=== PATIENT | female | born 1975 | race Hispanic/Latino ===

== ENCOUNTER 2016-09-21 20:36 | Emergency (ER) | payer SELFPAY ==
[~2016-09-21] VITALS: Ht 152.4 cm; Wt 61.4 kg
[2016-09-21 21:01] LABS: POINT-OF-CARE METER ID UU13113778
[2016-09-21 22:00] LABS: HEMATOCRIT 29.8 % (36.0-46.0); MCH 20.5 PG (29.0-34.0); MCHC 30.9 G/DL (30.0-36.0); MCV 66.5 FL (83-99); MEAN PLAT.VOLUME 9.8 uM^3 (9.5-12.4); PLATELET COUNT 421 K/uL (156-360); RBC DIS.WIDTH-CV 16.7 % (11.8-14.6); RBC DIS.WIDTH-SD 38.6 % (39-53); RED BLOOD COUNT 4.48 M/uL (3.80-5.20); WHITE BLOOD COUNT 10.3 K/uL (4.1-10.2)
[2016-09-21 22:07] LABS: CHLORIDE 103 mEq/L (99-109); POTASSIUM 3.3 mEq/L (3.7-5.4); SODIUM 137 mEq/L (136-147)
[2016-09-21 22:09] LABS: GLUCOSE 104 mg/dL (70-99)
[2016-09-21 22:10] LABS: ANION GAP 11 MEQ/L (2-14)
[2016-09-21 22:13] LABS: GFR ESTIMATE (CALCULATED) > 59 mL/min/; UREA NITROGEN (BUN) 11 mg/dL (9-23)
[2016-09-21 22:22] LABS: QUANTITATIVE HCG < 4.0 MIU/ML
[2016-09-21 23:48] LABS: ADD MIUA? YES; BILIRUBIN NEGATIVE; BLOOD MODERATE; COLOR COLORLESS ((YELLOW)); GLUCOSE (STRIP) NEGATIVE; KETONES NEGATIVE; LEUKOCYTES TRACE; NITRITE NEGATIVE; PROTEIN (STRIP) NEGATIVE; SPECIFIC GRAVITY 1.003 (1.000-1.030); UROBILINOGEN 0.2 MG/DL (0.2-1.0)
[2016-09-21 23:51] LABS: BACTERIA NONE SEEN /HPF; EPITHELIAL CELLS RARE /HPF; MUCUS NONE SEEN /LPF; RED BLOOD CELLS 0-5 /HPF (0-5); UCUL ADDED? NO; WHITE BLOOD CELLS 0-5 /HPF (0-5)
[2016-09-22] MEDS ORDERED: MOTION RELIEF25 MG PO (00:45)
[2016-09-22 00:57] VITALS: BP 120/88
[2016-09-23] MEDS ORDERED: IRON18 MG PO (23:59)
[2016-09-23] MEDS ORDERED: FIORICET 50-301 EACH PO (23:59)
== END 2016-09-22 00:58 | disposition home or self-care (01) ==
LOC: EME 20:36
PROVIDERS: Physician Assistant
DX: D64.9 Anemia, unspecified (principal); R42 Dizziness and giddiness; I10 Essential (primary) hypertension
CPT/HCPCS: 71020; 80048; 81003; 84702; 85027; 93005; 99281; 99285

== ENCOUNTER 2016-09-23 20:20 | Emergency (ER) | payer SELFPAY ==
[~2016-09-23] VITALS: Ht 160 cm; Wt 61.4 kg
[~2016-09-23 20:20] MED LIST: MOTION RELIEF25 MG PO
[2016-09-23 21:52] LABS: BASOPHIL COUNT 0.1 K/uL (0-0.1); EOSINOPHIL (%) 0.8 % (0-5); EOSINOPHIL COUNT 0.1 K/uL (0-0.3); HEMATOCRIT 30.6 % (36.0-46.0); IMMATURE GRANULOCYTE (%) 0.3 % (0.0-0.7); INSTRUMENT ABS NEUTROPHIL CT 6.9 K/uL; LYMPHOCYTE COUNT 1.5 K/uL (1.0-2.8); MCH 19.9 PG (29.0-34.0); MCHC 30.1 G/DL (30.0-36.0); MCV 66.2 FL (83-99); MEAN PLAT.VOLUME 10.3 uM^3 (9.5-12.4); MONOCYTE (%) 6.8 % (3-12); MONOCYTE COUNT 0.6 K/uL (0-0.8); NEUTROPHIL (%) 75.3 % (45-76); NEUTROPHIL COUNT 6.9 K/uL (1.8-6.4); PLATELET COUNT 422 K/uL (156-360); RBC DIS.WIDTH-CV 16.8 % (11.8-14.6); RED BLOOD COUNT 4.62 M/uL (3.80-5.20); WHITE BLOOD COUNT 9.2 K/uL (4.1-10.2)
[2016-09-23 22:02] LABS: CHLORIDE 105 mEq/L (99-109); POTASSIUM 3.9 mEq/L (3.7-5.4); SODIUM 141 mEq/L (136-147)
[2016-09-23 22:03] LABS: MAGNESIUM 2.1 mg/dL (1.3-2.7)
[2016-09-23 22:05] LABS: GLUCOSE 110 mg/dL (70-99)
[2016-09-23 22:06] LABS: ANION GAP 10 MEQ/L (2-14)
[2016-09-23 22:07] LABS: TOTAL BILIRUBIN 0.2 mg/dL (0.0-1.0)
[2016-09-23 22:08] LABS: ALKALINE PHOSPHATASE 87 IU/L (3-129)
[2016-09-23 22:09] LABS: GFR ESTIMATE (CALCULATED) > 59 mL/min/
[2016-09-23 22:10] LABS: UREA NITROGEN (BUN) 10 mg/dL (9-23)
[2016-09-23 22:12] LABS: CREATINE KINASE 54 IU/L (1-294); TOTAL CK 54 IU/L (1-294)
[2016-09-23 22:17] LABS: CK-MB < 0.4 ng/mL (0.0-4.9)
[2016-09-23] MEDS ORDERED: IRON18 MG PO (23:59)
[2016-09-23] MEDS ORDERED: FIORICET 50-301 EACH PO (23:59)
[2016-09-24 00:15] VITALS: BP 112/61
== END 2016-09-24 00:16 | disposition home or self-care (01) ==
LOC: EME 20:20
PROVIDERS: Emergency Medicine
DX: R53.1 Weakness (principal); R51 Headache; D64.9 Anemia, unspecified; E11.9 Type 2 diabetes mellitus without complications; I10 Essential (primary) hypertension
CPT/HCPCS: 70450; 80053; 82550; 82553; 83735; 85025; 86900; 86901; 93005; 99281; 99285; J3360; J7030

== ENCOUNTER 2016-09-26 22:29 | Observation (INO) | payer OTHER ==
[~2016-09-26] VITALS: Ht 162.6 cm; Wt 63.6 kg
[~2016-09-26 22:29] MED LIST changes: +FIORICET 50-301 EACH PO; +IRON18 MG PO
[2016-09-27 00:22] LABS: BASOPHIL COUNT 0.1 K/uL (0-0.1); CHLORIDE 106 mEq/L (99-109); EOSINOPHIL (%) 0.6 % (0-5); EOSINOPHIL COUNT 0.1 K/uL (0-0.3); HEMATOCRIT 31.5 % (36.0-46.0); IMMATURE GRANULOCYTE (%) 0.3 % (0.0-0.7); INSTRUMENT ABS NEUTROPHIL CT 10.3 K/uL; LYMPHOCYTE COUNT 1.8 K/uL (1.0-2.8); MCH 20.3 PG (29.0-34.0); MCHC 30.5 G/DL (30.0-36.0); MCV 66.6 FL (83-99); MEAN PLAT.VOLUME 10.3 uM^3 (9.5-12.4); MONOCYTE COUNT 0.9 K/uL (0-0.8); NEUTROPHIL (%) 77.9 % (45-76); NEUTROPHIL COUNT 10.3 K/uL (1.8-6.4); PLATELET COUNT 475 K/uL (156-360); POTASSIUM 4.2 mEq/L (3.7-5.4); RBC DIS.WIDTH-CV 17.2 % (11.8-14.6); RBC DIS.WIDTH-SD 39.9 % (39-53); RED BLOOD COUNT 4.73 M/uL (3.80-5.20); SODIUM 140 mEq/L (136-147); WHITE BLOOD COUNT 13.2 K/uL (4.1-10.2)
[2016-09-27 00:23] LABS: MAGNESIUM 2.3 mg/dL (1.3-2.7)
[2016-09-27 00:25] LABS: GLUCOSE 103 mg/dL (70-99)
[2016-09-27 00:26] LABS: ANION GAP 9 MEQ/L (2-14)
[2016-09-27 00:27] LABS: TOTAL BILIRUBIN 0.2 mg/dL (0.0-1.0)
[2016-09-27 00:28] LABS: SERUM ETHYL ALCOHOL < 10 mg/dL
[2016-09-27 00:29] LABS: GFR ESTIMATE (CALCULATED) > 59 mL/min/
[2016-09-27 00:30] LABS: ALKALINE PHOSPHATASE 86 IU/L (3-129); DIRECT BILIRUBIN 0.1 mg/dL (0.0-0.3); TROP-I INTERPRETATION NEGATIVE; TROPONIN-I < 0.01 ng/mL (0.0-0.30)
[2016-09-27 00:31] LABS: UREA NITROGEN (BUN) 6 mg/dL (9-23)
[2016-09-27 00:32] LABS: SALICYLATE < 5.0 MG/DL (15-30)
[2016-09-27 00:33] LABS: LIPASE 15 U/L (1.0-51.0)
[2016-09-27 00:39] LABS: QUANTITATIVE HCG < 4.0 MIU/ML
[2016-09-27 01:06] LABS: ADD MIUA? YES; BILIRUBIN NEGATIVE; BLOOD SMALL; COLOR STRAW ((YELLOW)); GLUCOSE (STRIP) NEGATIVE; KETONES NEGATIVE; LEUKOCYTES NEGATIVE; NITRITE NEGATIVE; PROTEIN (STRIP) NEGATIVE; SPECIFIC GRAVITY 1.003 (1.000-1.030); UROBILINOGEN 0.2 MG/DL (0.2-1.0)
[2016-09-27 01:12] LABS: BACTERIA RARE /HPF; EPITHELIAL CELLS RARE /HPF; MUCUS NONE SEEN /LPF; RED BLOOD CELLS 0-5 /HPF (0-5); UCUL ADDED? NO; WHITE BLOOD CELLS 0-5 /HPF (0-5)
[2016-09-27 03:44] VITALS: BP 120/84
[2016-09-27 06:51] LABS: C DIFF TOXIN NEGATIVE (NEGATIVE)
[2016-09-27 06:53] LABS: PROBE CHECK PASS; SPECIMEN PROCESSING CONTROL PASS
[2016-09-27 07:38] LABS: IRON 22 MCG/DL (35-150)
[2016-09-27 08:48] VITALS: BP 111/72
[2016-09-27 09:06] LABS: FERRITIN 20 NG/ML (10-291)
[2016-09-27 09:30] LABS: ANION GAP 13 MEQ/L (2-14); CHLORIDE 107 MEQ/L (99-109); GFR ESTIMATE (CALCULATED) > 59 mL/min/; GLUCOSE 91 mg/dL (70-99); POTASSIUM 3.9 MEQ/L (3.7-5.4); SAMPLE HEMOLYSIS CHECK 0; SAMPLE ICTERIC CHECK 0; SAMPLE LIPEMIA CHECK 0; SODIUM 142 MEQ/L (136-147); UREA NITROGEN (BUN) 5 mg/dL (9-23)
[2016-09-27 11:03] LABS: HEMATOCRIT 28.8 % (36.0-46.0); MCH 20.2 PG (29.0-34.0); MCHC 30.2 G/DL (30.0-36.0); MCV 66.8 FL (83-99); PLATELET COUNT 388 K/uL (156-360); RBC DIS.WIDTH-CV 17.1 % (11.8-14.6); RBC DIS.WIDTH-SD 39.9 % (39-53); RED BLOOD COUNT 4.31 M/uL (3.80-5.20); WHITE BLOOD COUNT 9.1 K/uL (4.1-10.2)
[2016-09-27 11:21] LABS: ANION GAP 9 MEQ/L (2-14); CHLORIDE 108 MEQ/L (99-109); POTASSIUM 4.1 MEQ/L (3.7-5.4); SAMPLE HEMOLYSIS CHECK 0; SAMPLE ICTERIC CHECK 0; SAMPLE LIPEMIA CHECK 0; SODIUM 144 MEQ/L (136-147)
[2016-09-27 11:26] LABS: GFR ESTIMATE (CALCULATED) > 59 mL/min/; GLUCOSE 93 mg/dL (70-99); UREA NITROGEN (BUN) 6 mg/dL (9-23)
[2016-09-27 11:47] VITALS: BP 127/71
[2016-09-27] MEDS ORDERED: OMEPRAZOLE20 M2 PO (14:16)
== END 2016-09-27 17:05 | disposition home or self-care (01) ==
LOC: EME 22:29 → 5WEST 09-27 02:43 → EDOF 09-27 02:43 → ENRESERV 09-27 02:44 → 5WEST 09-27 03:25
PROVIDERS: Emergency Medicine; Hospitalist; Nurse Practitioner Family
DX: I95.1 Orthostatic hypotension (principal); R55 Syncope and collapse; M62.81 Muscle weakness (generalized); D64.9 Anemia, unspecified; R19.7 Diarrhea, unspecified; N92.0 Excessive and frequent menstruation with regular cycle; E86.0 Dehydration; Z80.0 Family history of malignant neoplasm of digestive organs
CPT/HCPCS: 74176; 80048; 80048 91; 80076; 81003; 82272; 82607; 82728; 82746; 83540; 83605; 83690; 83735; 84466; 84484; 84702; 85025; 85027; 85651; 87493; 99281; 99285; G0378; G0480; J1650; J2765; J7030

== ENCOUNTER 2016-10-07 16:26 | Observation (INO) | payer OTHER ==
[~2016-10-07] VITALS: Ht 160 cm; Wt 57.7 kg
[~2016-10-07 16:26] MED LIST changes: +OMEPRAZOLE20 M2 PO
[2016-10-07 19:39] LABS: BASOPHIL COUNT 0.1 K/uL (0-0.1); D-DIMER ELISA < 150.00 ng/mLDDU (<230); EOSINOPHIL (%) 0.1 % (0-5); HEMATOCRIT 33.9 % (36.0-46.0); IMMATURE GRANULOCYTE (%) 0.4 % (0.0-0.7); IMMATURE GRANULOCYTE COUNT 0.1 K/uL; INSTRUMENT ABS NEUTROPHIL CT 10.5 K/uL; LYMPHOCYTE COUNT 2.8 K/uL (1.0-2.8); MCH 20.8 PG (29.0-34.0); MEAN PLAT.VOLUME 10.4 uM^3 (9.5-12.4); MONOCYTE (%) 8.7 % (3-12); MONOCYTE COUNT 1.3 K/uL (0-0.8); NEUTROPHIL (%) 71.5 % (45-76); NEUTROPHIL COUNT 10.5 K/uL (1.8-6.4); PLATELET COUNT 381 K/uL (156-360); RBC DIS.WIDTH-CV 19.7 % (11.8-14.6); RBC DIS.WIDTH-SD 45.1 % (39-53); RED BLOOD COUNT 5.06 M/uL (3.80-5.20); WHITE BLOOD COUNT 14.7 K/uL (4.1-10.2)
[2016-10-07 19:40] LABS: CHLORIDE 102 mEq/L (99-109); POTASSIUM 3.8 mEq/L (3.7-5.4); SODIUM 137 mEq/L (136-147)
[2016-10-07 19:42] LABS: GLUCOSE 97 mg/dL (70-99)
[2016-10-07 19:43] LABS: ANION GAP 12 MEQ/L (2-14)
[2016-10-07 19:46] LABS: GFR ESTIMATE (CALCULATED) > 59 mL/min/; UREA NITROGEN (BUN) 7 mg/dL (9-23)
[2016-10-07 19:53] LABS: TROP-I INTERPRETATION NEGATIVE; TROPONIN-I < 0.01 ng/mL (0.0-0.30)
[2016-10-08 01:24] VITALS: BP 118/75
[2016-10-08 03:49] VITALS: BP 128/73
[2016-10-08 05:43] LABS: D-DIMER ELISA < 150.00 ng/mLDDU (<230)
[2016-10-08 05:47] LABS: TROP-I INTERPRETATION NEGATIVE; TROPONIN-I < 0.01 ng/mL (0.0-0.30)
[2016-10-08 07:30] VITALS: BP 117/72
[2016-10-08 10:31] LABS: HEMATOCRIT 33.5 % (36.0-46.0); MCH 20.4 PG (29.0-34.0); MCHC 30.1 G/DL (30.0-36.0); MCV 67.5 FL (83-99); MEAN PLAT.VOLUME 10.6 uM^3 (9.5-12.4); PLATELET COUNT 377 K/uL (156-360); RBC DIS.WIDTH-CV 20.1 % (11.8-14.6); RBC DIS.WIDTH-SD 46.9 % (39-53); RED BLOOD COUNT 4.96 M/uL (3.80-5.20); WHITE BLOOD COUNT 13.2 K/uL (4.1-10.2)
[2016-10-08 10:53] LABS: TROP-I INTERPRETATION NEGATIVE; TROPONIN-I < 0.01 ng/mL (0.0-0.30)
[2016-10-08 10:55] LABS: ANION GAP 12 MEQ/L (2-14); CHLORIDE 106 MEQ/L (99-109); GFR ESTIMATE (CALCULATED) > 59 mL/min/; GLUCOSE 103 mg/dL (70-99); POTASSIUM 3.9 MEQ/L (3.7-5.4); SAMPLE HEMOLYSIS CHECK 0; SAMPLE ICTERIC CHECK 0; SAMPLE LIPEMIA CHECK 0; SODIUM 141 MEQ/L (136-147); UREA NITROGEN (BUN) 9 mg/dL (9-23)
[2016-10-08 12:02] VITALS: BP 126/72
[2016-10-08 12:07] LABS: IRON 18 MCG/DL (35-150)
[2016-10-08 12:24] LABS: FERRITIN 7 NG/ML (10-291)
[2016-10-08] MEDS ORDERED: FERROUS SULFAT325 MG PO (13:59)
[2016-10-08] MEDS ORDERED: ZOFRAN4 MG PO (14:00)
[2016-10-08] MEDS ORDERED: OMEPRAZOLE20 M2 PO (14:10)
[2016-10-09] MEDS ORDERED: ZOFRAN ODT4 MG PO (19:34)
== END 2016-10-08 15:13 | disposition home or self-care (01) ==
LOC: EME 16:26 → EDOF 23:47 → 5WEST 23:47 → ENRESERV 23:49 → 5WEST 10-08 01:05
PROVIDERS: Emergency Medicine; Hospitalist; Internal Medicine
DX: D64.9 Anemia, unspecified (principal); R53.1 Weakness; R55 Syncope and collapse; I95.1 Orthostatic hypotension; R07.9 Chest pain, unspecified; R11.0 Nausea; R94.31 Abnormal electrocardiogram [ECG] [EKG]; D72.829 Elevated white blood cell count, unspecified; Z80.0 Family history of malignant neoplasm of digestive organs
CPT/HCPCS: 71020; 80048; 81003; 82728; 83540; 84443; 84466; 84484; 85025; 85027; 85379; 86038; 93005; 99281; 99285; C9113; G0378; J1100; J1200; J1650; J2405; J2765; J7030

== ENCOUNTER 2016-10-09 15:14 | Emergency (ER) | payer SELFPAY ==
[~2016-10-09] VITALS: Ht 165.1 cm; Wt 63.6 kg
[~2016-10-09 15:14] MED LIST changes: +FERROUS SULFAT325 MG PO; +ZOFRAN4 MG PO
[2016-10-09 16:46] LABS: BASOPHIL COUNT 0.1 K/uL (0-0.1); EOSINOPHIL (%) 0.1 % (0-5); HEMATOCRIT 34.5 % (36.0-46.0); IMMATURE GRANULOCYTE (%) 0.3 % (0.0-0.7); INSTRUMENT ABS NEUTROPHIL CT 8.5 K/uL; LYMPHOCYTE COUNT 1.9 K/uL (1.0-2.8); MCH 20.7 PG (29.0-34.0); MCHC 31.3 G/DL (30.0-36.0); MEAN PLAT.VOLUME 10.6 uM^3 (9.5-12.4); MONOCYTE (%) 7.4 % (3-12); MONOCYTE COUNT 0.8 K/uL (0-0.8); NEUTROPHIL (%) 75.2 % (45-76); NEUTROPHIL COUNT 8.5 K/uL (1.8-6.4); PLATELET COUNT 382 K/uL (156-360); RBC DIS.WIDTH-CV 19.9 % (11.8-14.6); RBC DIS.WIDTH-SD 44.6 % (39-53); RED BLOOD COUNT 5.23 M/uL (3.80-5.20); WHITE BLOOD COUNT 11.3 K/uL (4.1-10.2)
[2016-10-09 17:03] LABS: TROP-I INTERPRETATION NEGATIVE; TROPONIN-I < 0.01 ng/mL (0.0-0.30)
[2016-10-09 17:07] LABS: CHLORIDE 106 mEq/L (99-109); POTASSIUM 3.4 mEq/L (3.7-5.4); SODIUM 139 mEq/L (136-147)
[2016-10-09 17:10] LABS: GLUCOSE 90 mg/dL (70-99)
[2016-10-09 17:11] LABS: ANION GAP 14 MEQ/L (2-14)
[2016-10-09 17:12] LABS: TOTAL BILIRUBIN 0.3 mg/dL (0.0-1.0)
[2016-10-09 17:13] LABS: ALKALINE PHOSPHATASE 80 IU/L (3-129); GFR ESTIMATE (CALCULATED) > 59 mL/min/
[2016-10-09 17:14] LABS: UREA NITROGEN (BUN) 9 mg/dL (9-23)
[2016-10-09] MEDS ORDERED: ZOFRAN ODT4 MG PO (19:34)
[2016-10-09 20:01] VITALS: BP 112/76
== END 2016-10-09 20:02 | disposition home or self-care (01) ==
LOC: EME 15:14
PROVIDERS: Emergency Medicine
DX: A08.4 Viral intestinal infection, unspecified (principal); I10 Essential (primary) hypertension
CPT/HCPCS: 71010; 80053; 81003; 83605; 84484; 85025; 87040; 87493; 93005; 99281; 99284; J2405; J7030

== ENCOUNTER → 2017-06-09 | Outpatient (CLI) | payer SELFPAY ==
[~2017-06-09] MED LIST changes: +ZOFRAN ODT4 MG PO
== END | disposition home or self-care (01) ==
LOC: RAD 12:39
DX: N83.9 Noninflammatory disorder of ovary, fallopian tube and broad ligament, unspecified (principal)
CPT/HCPCS: 76856